=== PATIENT | male | born 1975 | race Two or more races ===

== ENCOUNTER 2018-01-05 22:23 | Emergency (ER) | payer SELFPAY ==
[~2018-01-05] VITALS: Ht 172.7 cm; Wt 77.0 kg
[2018-01-06 04:00] VITALS: BP 123/71
== END 2018-01-06 05:53 | disposition home or self-care (01) ==
LOC: ER 23:53
DX: S02.31XA Fracture of orbital floor, right side, initial encounter for closed fracture (principal); S02.2XXA Fracture of nasal bones, initial encounter for closed fracture; Y08.89XA Assault by other specified means, initial encounter; Y93.89 Activity, other specified; Y92.89 Other specified places as the place of occurrence of the external cause; Y99.8 Other external cause status
CPT/HCPCS: 70486; 99284

== ENCOUNTER 2018-01-09 12:49 | Emergency (ER) | payer SELFPAY ==
[~2018-01-09] VITALS: Ht 167.6 cm; Wt 73.0 kg
[2018-01-09 12:57] VITALS: BP 158/89
== END 2018-01-09 18:09 | disposition home or self-care (01) ==
LOC: ER 12:49
DX: S02.31XA Fracture of orbital floor, right side, initial encounter for closed fracture (principal); S02.2XXA Fracture of nasal bones, initial encounter for closed fracture; Y04.2XXA Assault by strike against or bumped into by another person, initial encounter; Y93.89 Activity, other specified; Y92.89 Other specified places as the place of occurrence of the external cause
CPT/HCPCS: 99282